=== PATIENT | male | born 1945 | race Caucasian/White ===

== ENCOUNTER → 2017-06-10 | Outpatient (CLI) | payer MEDICARE | END | disposition home or self-care (01) | LOC: CFH 10:19 | PROVIDERS: ATTEND Internal Medicine | DX: I65.23 Occlusion and stenosis of bilateral carotid arteries (principal) | CPT/HCPCS: 93880 ==

== ENCOUNTER → 2017-10-31 | Outpatient (CLI) | payer MEDICARE | END | disposition home or self-care (01) | LOC: PETCFH 10:43 | PROVIDERS: ATTEND Internal Medicine | DX: J32.9 Chronic sinusitis, unspecified (principal); R93.7 Abnormal findings on diagnostic imaging of other parts of musculoskeletal system; M89.9 Disorder of bone, unspecified | CPT/HCPCS: 78306; A9503 ==

== ENCOUNTER → 2017-12-03 | Outpatient (CLI) | payer MEDICARE ==
[~2017-12-03] MED LIST: GADOBUTROL 10 MMOL/10 ML PFS ONE
== END | disposition home or self-care (01) ==
LOC: CFH 07:30
PROVIDERS: ATTEND Internal Medicine
DX: N40.0 Benign prostatic hyperplasia without lower urinary tract symptoms (principal); R93.7 Abnormal findings on diagnostic imaging of other parts of musculoskeletal system
CPT/HCPCS: 72197; A9585

== ENCOUNTER → 2020-12-08 | Outpatient (CLI) | payer MEDICARE | END | disposition home or self-care (01) | LOC: LAB 10:18 | PROVIDERS: ATTEND Internal Medicine | DX: R97.20 Elevated prostate specific antigen [PSA] (principal) | CPT/HCPCS: 36415; 84153; 84154 ==